=== PATIENT | male | born 1965 | race Caucasian/White ===

== ENCOUNTER 2019-12-23 14:39 | Inpatient (IN) | payer OTHER, BC ==
[~2019-12-23] VITALS: Ht 193 cm; Wt 143.5 kg
[2019-12-23 14:57] LABS: BASOPHILS # (AUTO) 0.01 x10^3/uL (0-0.1); BASOPHILS % (AUTO) 0 % (0-1); EOSINOPHILS # (AUTO) 0.01 x10^3/uL (0-0.4); EOSINOPHILS % (AUTO) 0 % (1-7); LYMPHOCYTES # (AUTO) 1.16 x10^3/uL (1-3.4); LYMPHOCYTES % (AUTO) 10 % (22-44); MD NO; MEAN CORPUSCULAR HEMOGLOBIN 32.1 pg (27.5-34.5); MEAN CORPUSCULAR HGB CONC 34.5 g/dL (33.2-36.2); MEAN PLATELET VOLUME 10.1 fL (7.4-10.4); MONOCYTES # (AUTO) 0.69 x10^3/uL (0.2-0.8); MONOCYTES % (AUTO) 6 % (2-9); NEUTROPHILS # (AUTO) 10.37 x10^3/uL (1.8-6.8); NEUTROPHILS % (AUTO) 85 % (42-75); PLATELET COUNT 165 x10^3/uL (130-400); RED BLOOD COUNT 4.89 x10^6/uL (4.38-5.82); RED CELL DISTRIBUTION WIDTH 12.6 % (9.4-14.8)
[2019-12-23] MEDS ORDERED: SODIUM CHLORIDE FLUSH 10ML SYR IVF ONE (15:00)
--- NOTE | 2019-12-23 15:00 | NUR ---
1435- code cardiac arrived and at 1444 was cancelled due to ekg changes resolved. Pt was biking in [facility] [place] today when he became very dizzy and started to become very sob. Pt reports a general feeling of unwell. Pt reports he felt like he was going to pass out. EMS arrvied and found pt in [facility] with PVcS in a rate of 220-230. Pt Was cardioverted with no conversion by ems and taken to [facility] where we he was synchronized cardioverted x2 at 200 joules and normal sinus rhythm was established. Pt then given 325 asa and 5700 units of heparin and transfered to [facility] for a STEMI due to v4-v6 depression. Pt on arrival reports he felt like his normal self and all symptoms had resolved. Pt was in NSR on arrival and code cardiac was cancelled. Pt was placed on all monitors and call light in reach. Awaiting further orders.
[2019-12-23 15:07] LABS: ALANINE AMINOTRANSFERASE 44 U/L (12-78); ALBUMIN 4.1 g/dL (3.4-5.0); ANION GAP 8 mmol/L (5-15); CALCIUM 8.9 mg/dL (8.5-10.1); CHLORIDE 111 mmol/L (98-107); CREATININE 1.54 mg/dL (0.7-1.3)
[2019-12-23 15:11] LABS: ALKALINE PHOSPHATASE 79 U/L (45-117); BILIRUBIN,TOTAL 1.1 mg/dL (0.2-1.0); TOTAL PROTEIN 7.3 g/dL (6.4-8.2)
[2019-12-23] MEDS ORDERED: HEPARIN 25,000 UNITS/250ML PMX 250 ML ONE (15:17)
[2019-12-23] MEDS ORDERED: HEPARIN 25,000 UNITS/250ML PMX 250 ML IV PRN (15:30)
[2019-12-23] MEDS ORDERED: HEPARIN 5,000 UNITS/ML, 1ML IV ONE (15:30)
[2019-12-23] MEDS ORDERED: HEPARIN 5,000 UNITS/ML, 1ML IV PRN (15:30)
--- NOTE | 2019-12-23 15:31 | NUR ---
WARM BLANKET AND URINAL PROVIDED.
[2019-12-23] MEDS ORDERED: AMIODARONE 450 MG in DEXTROSE 5% 241 ML IV PRN ×2 (15:40→16:25)
[2019-12-23] MEDS ORDERED: FILTER 0.22 MICRON IV PRN ×2 (16:00→16:30)
[2019-12-23] MEDS ORDERED: SODIUM CHLORIDE FLUSH 10ML SYR IVF PRN (16:00)
--- NOTE | 2019-12-23 16:09 | NUR ---
AMIO drip started, pts vitals wnl, no new changes.
[2019-12-23] MEDS ORDERED: ONDANSETRON ODT 4 MG PO PRN (16:30)
[2019-12-23] MEDS ORDERED: POLYETHYLENE GLYCOL 17 GM PACKET PO PRN (16:30)
[2019-12-23] MEDS ORDERED: MORPHINE SULFATE 4 MG/ML, 1ML IVPush PRN (16:30)
[2019-12-23] MEDS ORDERED: DOCUSATE 100 MG CAPSULE PO PRN (16:30)
[2019-12-23] MEDS ORDERED: ONDANSETRON 2MG/ML, 2ML IVPush PRN (16:30)
[2019-12-23] MEDS ORDERED: NITROGLYCERIN 0.4 MG BOTTLE (25 TABS) SL PRN (16:30)
[2019-12-23] MEDS ORDERED: BISACODYL 10 MG SUPP PR PRN (16:30)
[2019-12-23] MEDS ORDERED: ACETAMINOPHEN 325 MG TABLET PO PRN (16:30)
[2019-12-23] MEDS ORDERED: LABETALOL 5MG/ML, 20ML IVPush PRN (16:30)
[2019-12-23] MEDS ORDERED: ENALAPRILAT 1.25 MG/ML, 2ML IVPush PRN (16:30)
--- NOTE | 2019-12-23 17:22 | NUR ---
Pt resting in room with no apparent distress.
--- NOTE | 2019-12-23 17:41 | NUR ---
Report to Mitchell HATFIELD
[2019-12-23 17:59] VITALS: BP 137/90
[2019-12-23] MEDS: LACTATED RINGERS 1,000 ML IV SCH (18:46)
[2019-12-23 18:55] VITALS: BP 136/95
[2019-12-23] MEDS: HEPARIN 5,000 UNITS/ML, 1ML IV PRN (22:09)
[2019-12-24 01:17] VITALS: BP 120/80
[2019-12-24] MEDS: LACTATED RINGERS 1,000 ML IV SCH ×3 (02:48→21:21)
[2019-12-24 04:22] LABS: BASOPHILS # (AUTO) 0.03 x10^3/uL (0-0.1); BASOPHILS % (AUTO) 0 % (0-1); EOSINOPHILS % (AUTO) 2 % (1-7); LYMPHOCYTES # (AUTO) 2.61 x10^3/uL (1-3.4); LYMPHOCYTES % (AUTO) 39 % (22-44); MD NO; MEAN CORPUSCULAR HEMOGLOBIN 31.7 pg (27.5-34.5); MEAN CORPUSCULAR HGB CONC 33.9 g/dL (33.2-36.2); MEAN CORPUSCULAR VOLUME 93.4 fL (81-97); MONOCYTES # (AUTO) 0.73 x10^3/uL (0.2-0.8); MONOCYTES % (AUTO) 11 % (2-9); NEUTROPHILS # (AUTO) 3.22 x10^3/uL (1.8-6.8); NEUTROPHILS % (AUTO) 48 % (42-75); PLATELET COUNT 139 x10^3/uL (130-400); RED BLOOD COUNT 4.49 x10^6/uL (4.38-5.82); RED CELL DISTRIBUTION WIDTH 13.1 % (9.4-14.8)
[2019-12-24 04:28] LABS: ANION GAP 7 mmol/L (5-15); CALCIUM 8.3 mg/dL (8.5-10.1); CHLORIDE 110 mmol/L (98-107)
[2019-12-24 04:33] LABS: CHOLESTEROL, TOTAL 173 mg/dL (140-239); CREATININE 1.19 mg/dL (0.7-1.3); HDL CHOL % 33 % (26-37); HDL CHOLESTEROL (DIRECT) 57 mg/dL (40-60); LDL CHOLESTEROL,CALCULATED 104 mg/dL (54-169); LDL/HDL RATIO 1.8 (0.5-3.0); TRIGLYCERIDES 62 mg/dL (50-200); VLDL CHOLESTEROL 12 mg/dL (0-25)
[2019-12-24] MEDS: ASPIRIN 325 MG TABLET EC PO SCH (06:19)
[2019-12-24] MEDS: HEPARIN 25,000 UNITS/250ML PMX 250 ML IV PRN ×2 (06:23→21:35)
[2019-12-24 06:37] VITALS: BP 141/94
[2019-12-24] MEDS: HEPARIN 5,000 UNITS/ML, 1ML IV PRN (12:06)
[2019-12-24 12:21] VITALS: BP 148/98
[2019-12-24 20:25] VITALS: BP 119/85
[2019-12-25 01:58] VITALS: BP 146/96
[2019-12-25] MEDS: ASPIRIN 325 MG TABLET EC PO SCH (05:16)
[2019-12-25] MEDS: LACTATED RINGERS 1,000 ML IV SCH (05:16)
[2019-12-25 05:41] LABS: CHLORIDE 111 mmol/L (98-107)
[2019-12-25 05:52] LABS: ANION GAP 6 mmol/L (5-15); CALCIUM 8.4 mg/dL (8.5-10.1); CREATININE 1.02 mg/dL (0.7-1.3)
[2019-12-25] MEDS ORDERED: MAGNESIUM SULFATE PMX 2GM/50ML 50 ML IV ONE (06:30)
[2019-12-25 06:46] VITALS: BP 145/94
[2019-12-25 12:42] VITALS: BP 150/95
[2019-12-25] MEDS ORDERED: MIDAZOLAM 1 MG/ML, 5ML ONE (14:44)
[2019-12-25] MEDS ORDERED: LIDOCAINE-MPF 1%, 5ML ONE (14:45)
[2019-12-25] MEDS ORDERED: TICAGRELOR 90 MG TABLET ONE (14:45)
[2019-12-25] MEDS ORDERED: HEPARIN 1,000 UNITS/ML, 10ML ONE (14:45)
[2019-12-25] MEDS ORDERED: FENTANYL PF 100 MCG/2ML ONE (14:45)
[2019-12-25] MEDS ORDERED: VERAPAMIL 2.5 MG/ML, 2ML ONE (14:45)
[2019-12-25] MEDS ORDERED: BIVALIRUDIN 250 MG ONE (14:45)
[2019-12-25] MEDS ORDERED: SODIUM CHLORIDE 0.9% 1,000 ML IV SCH (15:19)
[2019-12-25 21:30] VITALS: BP 136/91
[2019-12-26 02:00] VITALS: BP 128/85
[2019-12-26 04:20] LABS: ANION GAP 6 mmol/L (5-15); CALCIUM 8.5 mg/dL (8.5-10.1); CHLORIDE 111 mmol/L (98-107); CREATININE 1.07 mg/dL (0.7-1.3)
[2019-12-26] MEDS: ASPIRIN 325 MG TABLET EC PO SCH (06:02)
[2019-12-26 06:56] VITALS: BP 128/73
[2019-12-26 13:20] VITALS: BP 143/93
[2019-12-26] MEDS ORDERED: SUGAMMADEX 200 MG/2 ML IVPush ONE ×4 (13:28→17:21)
[2019-12-26] MEDS ORDERED: HYDROmorphone 1 MG/ML, 1ML INJ IVPush PRN (13:30)
[2019-12-26] MEDS ORDERED: ONDANSETRON 2MG/ML, 2ML IVPush PRN (13:30)
[2019-12-26] MEDS ORDERED: ACETAMINOPHEN 325 MG TABLET PO PRN (13:30)
[2019-12-26] MEDS ORDERED: LABETALOL 5MG/ML, 20ML IV PRN (13:30)
[2019-12-26] MEDS ORDERED: EPHEDRINE 50 MG/ML, 1ML IVPush PRN (13:30)
[2019-12-26] MEDS ORDERED: OXYcodone 5 MG/5 ML ORAL.SOL UDC PO PRN (13:30)
[2019-12-26] MEDS ORDERED: MEPERIDINE/PF 25MG/0.5ML IVPush PRN (13:30)
[2019-12-26] MEDS ORDERED: PROMETHAZINE 25 MG/ML, 1ML IVPush PRN (13:30)
[2019-12-26] MEDS ORDERED: hydrALAzine 20 MG/ML, 1ML IV PRN (13:30)
[2019-12-26] MEDS ORDERED: FENTANYL PF 100 MCG/2ML IV PRN (13:30)
[2019-12-26] MEDS ORDERED: MIDAZOLAM 1 MG/ML, 2ML ONE (14:11)
[2019-12-26] MEDS ORDERED: FENTANYL PF 250 MCG/5ML ONE (14:11)
[2019-12-26] MEDS ORDERED: SODIUM CHLORIDE 0.9% 1,000 ML IV SCH (15:31)
[2019-12-26] MEDS ORDERED: CEFAZOLIN PMX 1GM/50ML 50 ML IVPB ONE (16:00)
[2019-12-26] MEDS ORDERED: LIDOCAINE 2%, 20ML ONE (16:57)
[2019-12-26] MEDS ORDERED: LIDOCAINE-MPF 2% ,5ML ONE (17:21)
[2019-12-26] MEDS ORDERED: ONDANSETRON 2MG/ML, 2ML ONE (17:22)
[2019-12-26] MEDS ORDERED: ROCURONIUM 10MG/ML,5ML ONE (17:22)
[2019-12-26] MEDS ORDERED: SUCCINYLCHOLINE 20 MG/ML, 10ML ONE (17:22)
[2019-12-26] MEDS ORDERED: DEXAMETHASONE 4 MG/ML, 1ML ONE (17:22)
[2019-12-26] MEDS ORDERED: PROPOFOL 10 MG/ML, 20ML ONE (17:22)
[2019-12-26] MEDS ORDERED: CEFAZOLIN 1,000 MG ONE ×2 (17:22→17:54)
[2019-12-26] MEDS: SODIUM CHLORIDE 0.9% 1,000 ML IV SCH ×2 (17:45→23:32)
[2019-12-26] MEDS ORDERED: LIDOCAINE 1%, 20ML ONE (17:53)
[2019-12-26] MEDS ORDERED: HOLD MEDICATION MC PRN (19:30)
[2019-12-26 20:29] VITALS: BP 133/87
[2019-12-26] MEDS: SODIUM CHLORIDE FLUSH 10ML SYR IVF SCH (20:45)
[2019-12-27 01:20] VITALS: BP 127/85
[2019-12-27 07:17] VITALS: BP 93/54
[2019-12-27] MEDS: SODIUM CHLORIDE 0.9% 1,000 ML IV SCH (07:24)
[2019-12-27] MEDS: SODIUM CHLORIDE FLUSH 10ML SYR IVF SCH (08:25)
[2019-12-27] MEDS ORDERED: METO25TA2 PO (09:33)
== END 2019-12-27 11:35 | disposition home or self-care (01) | DRG 225 ==
LOC: ED 16:15 → EDIP 16:33 → 5SO 18:05 → DCLOUNGE 12-27 11:19
PROVIDERS: ADMIT Hospitalist; ATTEND Hospitalist
PROC: 4A023N7 Measurement of Cardiac Sampling and Pressure, Left Heart, Percutaneous Approach (ICD-10-PCS; principal; 2019-12-25)
PROC: B2111ZZ Fluoroscopy of Multiple Coronary Arteries using Low Osmolar Contrast (ICD-10-PCS; 2019-12-25)
PROC: B2151ZZ Fluoroscopy of Left Heart using Low Osmolar Contrast (ICD-10-PCS; 2019-12-25)
PROC: 5A09357 Assistance with Respiratory Ventilation, Less than 24 Consecutive Hours, Continuous Positive Airway Pressure (ICD-10-PCS; 2019-12-25)
PROC: 025 Heart and Great Vessels, Destruction (ICD-10-PCS; 2019-12-26)
PROC: 0JH608Z Insertion of Defibrillator Generator into Chest Subcutaneous Tissue and Fascia, Open Approach (ICD-10-PCS; 2019-12-27)
PROC: 02HK3KZ Insertion of Defibrillator Lead into Right Ventricle, Percutaneous Approach (ICD-10-PCS; 2019-12-27)
PROC: 4B02XTZ Measurement of Cardiac Defibrillator, External Approach (ICD-10-PCS; 2019-12-27)
DX: I47.2 Ventricular tachycardia (principal); I42.9 Cardiomyopathy, unspecified; J98.11 Atelectasis; N17.9 Acute kidney failure, unspecified; I24.9 Acute ischemic heart disease, unspecified; D72.829 Elevated white blood cell count, unspecified; E66.9 Obesity, unspecified; G47.33 Obstructive sleep apnea (adult) (pediatric); I10 Essential (primary) hypertension; I49.3 Ventricular premature depolarization; Y83.1 Surgical operation with implant of artificial internal device as the cause of abnormal reaction of the patient, or of later complication, without mention of misadventure at the time of the procedure; R42 Dizziness and giddiness; Z68.38 Body mass index [BMI] 38.0-38.9, adult; Y93.55 Activity, bike riding; Z82.49 Family history of ischemic heart disease and other diseases of the circulatory system; Z95.810 Presence of automatic (implantable) cardiac defibrillator
CPT/HCPCS: 33249; 36415; 93458; 93566; 93613; 93620; 96374; 96375; 99291; J3490; 71045; 80048; 80053; 80061; 83036; 83735; 84443; 84484; 85025; 85520; 85730; 93005; 93306; 99156; C1766; C1769; C1892; C1894; C1895; G0378; J0583; J0690; J1100; J1644; J2250; J2405; J2704; J3010; J7060; C1722; C1730; J0282; J0330; J3475; J7120; Q9967